=== PATIENT | male | born 2000 | race Caucasian/White ===

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

== ENCOUNTER 2023-10-28 08:20 | Emergency (ER) | payer SELFPAY ==
[~2023-10-28] VITALS: Ht 177.8 cm; Wt 74.1 kg
[2023-10-28 08:20] VITALS: BP 142/80; TEMP 98.7; O2SAT 99
[~2023-10-28 08:20] MED LIST: BACT800T5 PO
== END 2023-10-28 10:10 | disposition left against medical advice (07) ==
LOC: M ED 08:20
DX: Z53.21 Procedure and treatment not carried out due to patient leaving prior to being seen by health care provider (principal)

== ENCOUNTER 2023-10-31 15:48 | Emergency (ER) | payer SELFPAY ==
[~2023-10-31] VITALS: Ht 177.8 cm; Wt 74.7 kg
[2023-10-31 17:30] LABS: MONO SCRN NEGATIVE (NEGATIVE)
[2023-10-31] MEDS ORDERED: MORPHINE 4 MG/ML 1ML VIAL IV ONE (17:30)
[2023-10-31] MEDS ORDERED: ONDANSETRON 4MG 2ML VIAL IV ONE (17:30)
[2023-10-31] MEDS ORDERED: NS 1,000 ML IV ONE (17:30)
[2023-10-31 17:55] VITALS: BP 122/71; TEMP 99.3; O2SAT 98
== END 2023-10-31 18:01 | disposition home or self-care (01) ==
LOC: M ED 15:48
DX: R07.0 Pain in throat (principal); B34.9 Viral infection, unspecified; Z88.0 Allergy status to penicillin

== ENCOUNTER 2023-11-03 17:36 | Emergency (ER) | payer SELFPAY ==
[~2023-11-03] VITALS: Ht 177.8 cm; Wt 70.6 kg
[2023-11-03] MEDS ORDERED: CEFD1CAP9 (17:46)
[2023-11-03] MEDS ORDERED: MAGICMW SSP (20:49)
[2023-11-03 21:06] VITALS: BP 132/70; TEMP 97.6; O2SAT 99
[2023-11-03] MEDS: LIDOCAINE VISCOUS 2% SOLN 15ML UDC SSP ONE (21:13)
[2023-11-03] MEDS: MAGIC MOUTHWASH *ED ONLY* 5ML ORAL SYRINGE SSP ONE (21:14)
== END 2023-11-03 21:26 | disposition home or self-care (01) ==
LOC: M ED 17:36
DX: K12.1 Other forms of stomatitis (principal); Z88.0 Allergy status to penicillin